=== PATIENT | female | born 1975 ===

== ENCOUNTER 2018-06-26 15:21 | Inpatient (IN) | payer MEDICAID ==
[~2018-06-26] VITALS: Ht 167.6 cm; Wt 58.5 kg
--- NOTE | ~2018-06-26 | EC ---
PATIENT:KAIDEN EASTON DATE OF SERVICE: 06/26/18 SEX: F MEDICAL RECORD: [id number] DATE OF : [birth year] LOCATION:[address]. [address].212 AGE OF PATIENT: 43 ADMISSION DATE: 06/26/18 REFERRING PHYSICIAN: INTERPRETING PHYSICIAN: MIKE IRIZARRY MD ECHOCARDIOGRAM REPORT ECHO CHARGES 4 ECHO COMPLETE Date: 06/28/18 CLINICAL DIAGNOSIS: LVEF, ASCITIES NEW ONSET-FLUID OVERLOAD ECHOCARDIOGRAPHIC MEASUREMENTS (adult normal given) AC root (d.<3.7cm) 3.7 cm LV Septum d (<1.2 cm> 1.7 cm Valve Excursion 2.2 cm LV Septum (systole) 1.9 cm Left Atria (s.<4.0cm> 4.8 cm LVPW d(<1.2cm) 1.7 cm RV (d.<2.3cm) 5.3 cm LVPW (sytole) 2.0 cm LV diastole(<5.6CM) 5.5 cm MV E-F(>70mm/sec) cm LV systole 4.0 cm LVOT Diameter 2.0 cm MV exc.(>10mm) 1.7 cm Est.ejection fraction (50-75%) % DOPPLER: LVIT cm/sec A 84.0 cm/sec E 82.0 cm/sec LA cm/sec RVSP 53 mmHg LVOT 105 cm/sec AOP1/2T m/s Asc. Ao 149 cm/sec RVOT 82 cm/sec RA cm/sec PA 98 cm/sec AV Gradient Peak 8.89 mmHg AV Mean 5.24 mmHg AV Area 2.5 cm MV Gradient Peak 4.10 mmHg MV Mean 1.53 mmHg MV Area cm COMMENTS: Lunchroom Operator: 2 RASHAWN PRATT Multiple Effect Evaporator Operator: 4 Dr. Irizarry TAPE# PACS Pericardial Effusion Y DATE OF SERVICE: PROCEDURE: Transthoracic echocardiogram. FINDINGS: 1. The patient appears to have moderate concentric left ventricular hypertrophy. Inflow characteristics are consistent with diastolic dysfunction. The overall ejection fraction appears to be in the 50% range with mild global hypokinesis. 2. The right ventricle is moderate to severely dilated with otherwise normal ECHOCARDIOGRAM REPORT [id number] KAIDEN EASTON function. The right ventricular systolic pressures appeared to be elevated between 50 and 60 mmHg. In one view, we can see the right atrium and what appears to be possibly a port. Cannot rule out a vegetation on the tricuspid valve, however, and if the clinical situation is appropriate, may be reasonable to do a transesophageal echocardiogram. 3. The aortic valve appears to be normal. 4. The mitral valve has moderate to severe mitral regurgitation, structurally the valve appears to be intact. 5. The right atrium is shown to be moderately to severely dilated and there is bowing from the right side into the left. 6. The tricuspid valve has severe tricuspid regurgitation. 7. The pulmonic valve is not well visualized. TRANSINT:[id number] Voice Confirmation ID: [id number] DOCUMENT ID: [id number] MIKE IRIZARRY MD at 0849 CC: [id number] DICTATION DATE: 06/29/18 0757 GUN STOCK CHECKER: 06/29/18 0824 DIS IN 06/30/18 [facility] [address] [place] [address]
[2018-06-26 21:28] VITALS: BP 187/118; BMI 22.6
[2018-06-27 04:30] VITALS: BP 175/119
[2018-06-27 07:44] LABS: BASOPHILS 1.7 % (0-2); HEMOGLOBIN 11.8 g/dL (12-16); IMMATURE GRANULOCYTES 0.7 % (0-5); MCH 27.2 pg (26.0-34.0); MCHC 31.1 g/dL (31.0-37.0); MCV 87.6 fL (80.0-100.0); MEAN PLATELET VOLUME 9.9 fL (7.4-10.4); MONOCYTES 11.7 % (2-11); NEUTROPHILS 53.9 % (40-80); PLATELET COUNT 159 10x3/uL (130-400); RBC 4.34 10x6/uL (4.00-5.40); RDW 18.9 % (11.5-14.5)
[2018-06-27 08:04] LABS: ALBUMIN 2.3 g/dL (3.4-5.0); ANION GAP 20.9 mmol/L (8-16); BILIRUBIN - TOTAL 1.16 mg/dL (0.2-1.3); CALCIUM 8.3 mg/dL (8.5-10.1); CARBON DIOXIDE 24.3 mmol/L (21.0-32.0); CREATININE - SERUM 8.1 mg/dL (0.6-1.3); POTASSIUM - SERUM 4.2 mmol/L (3.5-5.1); PROTEIN - SERUM 6.5 g/dL (6.4-8.2)
[2018-06-27 08:58] VITALS: BP 194/126
[2018-06-27] MEDS ORDERED: NEPHRO-VITE RX1 TAB PO (09:34)
[2018-06-27] MEDS ORDERED: PHOSLO667 MG PO (09:35)
[2018-06-27] MEDS ORDERED: CATAPRES0.2 MG PO (09:35)
[2018-06-27] MEDS ORDERED: PRINIVIL20 MG PO (09:36)
[2018-06-27] MEDS ORDERED: METOPROLOL TART50 MG PO (09:36)
[2018-06-27] MEDS ORDERED: ZYLOPRIM100 MG PO (09:37)
[2018-06-27 12:02] VITALS: BP 186/125
[2018-06-27 14:06] VITALS: BMI 22.6
[2018-06-27 15:40] VITALS: BP 181/130
[2018-06-27 18:26] VITALS: BP 160/110
[2018-06-27 20:00] VITALS: BP 163/108
[2018-06-28] VITALS (10 sets, daily range): BP systolic 149–184; BP diastolic 100–129
[2018-06-28 07:08] LABS: ALBUMIN 2.3 g/dL (3.4-5.0); ANION GAP 16.5 mmol/L (8-16); BILIRUBIN - DIRECT 0.73 mg/dL (0.00-0.30); BILIRUBIN - INDIRECT 0.31 mg/dL (0.00-1.00); BILIRUBIN - TOTAL 1.04 mg/dL (0.2-1.3); CALCIUM 8.2 mg/dL (8.5-10.1); CARBON DIOXIDE 25.6 mmol/L (21.0-32.0); CREATININE - SERUM 9.4 mg/dL (0.6-1.3); POTASSIUM - SERUM 4.1 mmol/L (3.5-5.1); PROTEIN - SERUM 6.7 g/dL (6.4-8.2)
[2018-06-28 07:45] LABS: APTT 32.5 SECONDS (22.8-39.4); INR 1.37 (0.85-1.17); PROTIME 16.4 SECONDS (11.6-15.0)
[2018-06-28 15:39] LABS: PROTEIN - BODY FLUID 3.9 G/DL
[2018-06-28 17:48] LABS: MACROPHAGES BF 1 %; NEUT - BF 3 %
[2018-06-29 04:00] VITALS: BP 165/113
[2018-06-29 11:45] VITALS: BP 172/115
[2018-06-29 12:39] VITALS: Ht 167.6 cm; Wt 58.5 kg
[2018-06-29 15:28] LABS: HEPATITIS C ANTIBODY 0.1 (0.0-0.9)
[2018-06-29 16:47] VITALS: BP 133/95
[2018-06-29 20:00] VITALS: BP 113/77
[2018-06-30 04:00] VITALS: BP 127/91
[2018-06-30 07:59] VITALS: BP 135/94
[2018-06-30] MEDS ORDERED: ZESTRIL40 MG PO ×2 (11:14→12:51)
[2018-06-30] MEDS ORDERED: NORVASC10 MG PO ×2 (11:14→12:51)
[2018-06-30] MEDS ORDERED: REVATIO20 MG PO ×2 (11:15→12:51)
[2018-06-30] MEDS ORDERED: ALDACTONE25 MG PO ×2 (11:15→12:51)
[2018-06-30 11:21] VITALS: BP 126/87
== END 2018-06-30 16:46 | disposition home or self-care (01) | DRG 291 ==
LOC: D.M2 15:21
PROVIDERS: Internal Medicine; Internal Medicine Nephrology; Radiology Vascular & Interventional Radiology
PROC: 0W9G3ZZ Drainage of Peritoneal Cavity, Percutaneous Approach (ICD-10-PCS; principal; 2018-06-28 13:05)
DX: I13.2 Hypertensive heart and chronic kidney disease with heart failure and with stage 5 chronic kidney disease, or end stage renal disease (principal); N18.6 End stage renal disease; R18.8 Other ascites; N25.81 Secondary hyperparathyroidism of renal origin; I16.0 Hypertensive urgency; I50.810 Right heart failure, unspecified; I27.20 Pulmonary hypertension, unspecified; I08.1 Rheumatic disorders of both mitral and tricuspid valves; M32.14 Glomerular disease in systemic lupus erythematosus; D63.1 Anemia in chronic kidney disease; Z87.891 Personal history of nicotine dependence